=== PATIENT | male | born 1940 | race Caucasian/White ===

== ENCOUNTER 2016-12-07 19:28 | Observation (INO) | payer OTHER ==
[~2016-12-07] VITALS: Ht 172.7 cm; Wt 89.0 kg
[2016-12-07 19:32] VITALS: BP 183/88; PULSE 71; RESP 16; TEMP 98.1; O2SAT 98
[2016-12-07 19:41] VITALS: BP 157/87; PULSE 70; RESP 17; TEMP 98.6; O2SAT 96
[2016-12-07 19:44] VITALS: BP 157/87; PULSE 70; RESP 17; O2SAT 96
[2016-12-07] MEDS ORDERED: SODIUM CHLORIDE 0.9% FLUSH 5 ML FLUSH IVF PRN (20:00)
[2016-12-07] MEDS ORDERED: ASPIRIN 81 MG CHEW TAB PO ONE (20:00)
--- NOTE | 2016-12-07 20:05 | PD ---
HPI Chief Complaint: Chest Pain Time Seen by Provider: 19:47 Travel History International Travel<30 days: No Contact w/Intl Traveler<30days: No History of Present Illness HPI Patient is a 76-year-old male with history of hypertension, hyperlipidemia and coronary artery disease who presents emergency room for evaluation of chest pain. Patient reports that he has been having chest pain which has been ongoing for the past 2 days. Patient reports that he had substernal chest pressure all day yesterday, reports that he had the pressure to his chest all day today and since he has hx of cad, reports that he figured he should have a cardiac evaluation. Patient reports that he has no chest pain at this time. Patient reports that nothing makes his chest pain better or worse. Patient reports that he has been very stressed at home lately, patient associates this with this chest pain. Patient reports that he has history of a quadruple bypass in 1995, does follow me office with Dr. Agustin. Patient at this time denies any chest pain or shortness of breath. Patient denies diaphoresis. Patient with no complaints. PFSH Past Medical History Blood Disorders: No Anxiety: Yes Depression: Yes Heart Rhythm Problems: No Cancer: No Cardiac Catheterization: Yes Cardiovascular Problems: Yes High Cholesterol: No Chemotherapy: No Chest Pain: Yes Congestive Heart Failure: No Cerebrovascular Accident: No Endocrine: No Genitourinary: No Headaches: No Hypertension: Yes Immune Disorder: No Musculoskeletal: No Neurologic: No Psychiatric: No Reproductive: No Respiratory: No Myocardial Infarction: Yes Radiation Therapy: No Seizures: No Past Surgical History Abdominal Surgery: No AICD: No Arteriovenous Shunt: No Cardiac Surgery: Yes Coronary Artery Bypass Graft: Yes (CABG QUAD) Ear Surgery: No Endocrine Surgery: No Eye Surgery: No Genitourinary Surgery: No Gynecologic Surgery: No Insulin Pump: No Joint Replacement: No Oral Surgery: No Pacemaker: No Thoracic Surgery: No Other Surgery: Yes Family History Family History: Negative Social History Alcohol Use: No Tobacco Use: No Substance Use: No Allergies-Medications (Allergen,Severity, Reaction): Coded Allergies: No Known Allergies (Verified , 12/07/16) Uncoded Allergies: NKA (Allergy, Unknown, 07/17/03) Reported Meds & Prescriptions Reported Meds & Active Scripts Active Review of Systems General / Constitutional: No: Fever Eyes: No: Visual changes HENT: No: Headaches Cardiovascular: Positive: Chest Pain or Discomfort, No: Palpitations, Irregular Rhythm, Tachycardia, Diaphoresis, Syncope Respiratory: No: Shortness of Breath Gastrointestinal: No: Abdominal Pain Genitourinary: No: Dysuria Musculoskeletal: No: Pain Skin: No Rash Neurologic: No: Weakness Psychiatric: No: Depression Endocrine: No: Polydipsia Hematologic/Lymphatic: No: Easy Bruising Physical Exam Narrative GENERAL: No acute distress, nontoxic SKIN: Warm and dry. HEAD: Atraumatic. Normocephalic. EYES: No injection or drainage. ENT: No nasal bleeding or discharge. Mucous membranes pink and moist. NECK: Trachea midline. No JVD. CARDIOVASCULAR: Regular rate and rhythm. No murmur appreciated. RESPIRATORY: No accessory muscle use. Clear to auscultation. Breath sounds equal bilaterally. GASTROINTESTINAL: Abdomen soft, non-tender, nondistended. Hepatic and splenic margins not palpable. MUSCULOSKELETAL: No obvious deformities. No clubbing. No cyanosis. No edema. NEUROLOGICAL: Awake and alert. No obvious cranial nerve deficits. Motor grossly within normal limits. Normal speech. PSYCHIATRIC: Appropriate mood and affect; insight and judgment normal. Data Data Last Documented VS Vital Signs Date Time Temp Pulse Resp B/P Pulse Ox O2 Delivery O2 Flow Rate FiO2 12/07/16 19:44 70 17 157/87 96 Room Air 12/07/16 19:32 98.1 Orders B-Type Natriuretic Peptide (12/07/16 19:53) Ckmb (Isoenzyme) Profile (12/07/16 19:53) Complete Blood Count With Diff (12/07/16 19:53) Comprehensive Metabolic Panel (12/07/16 19:53) Prothrombin Time / Inr (Pt) (12/07/16 19:53) Act Partial Throm Time (Ptt) (12/07/16 19:53) Troponin I (12/07/16 19:53) Chest, Single Ap (12/07/16 19:53) Ecg Monitoring (12/07/16 19:53) Iv Access Insert/Monitor (12/07/16 19:53) Oximetry (12/07/16 19:53) Aspirin Chew (Aspirin Chew) (12/07/16 20:00) Sodium Chloride 0.9% Flush (Ns Flush) (12/07/16 20:00) MDM Medical Decision Making Medical Screen Exam Complete: Yes Emergency Medical Condition: Yes Interpretation(s) EKG at 1941, NSR at 72bpm, qt/qtc: 406/431, st seg depression V2-V6 Vital Signs Date Time Temp Pulse Resp B/P Pulse Ox O2 Delivery O2 Flow Rate FiO2 12/07/16 19:44 70 17 157/87 96 Room Air 12/07/16 19:40 69 17 98 Room Air 12/07/16 19:32 98.1 71 16 183/88 98 Room Air Differential Diagnosis ACS, arrhythmia, electrolyte abnormality, PE Narrative Course Patient is a 76-year-old male who presents to emergency room with complaints of chest pain. Patient has been having chest pain/chest pressure since yesterday. Reports that nothing really makes his chest pain better or worse, patient with no chest pain at this time. Patient does have history of coronary disease does follow-up with Dr. Meme Agustin in the office. Patient was placed on detective precinct upon arrival to emergency room. EKG obtained, patient with ST segment depressions in anterior lateral leads. Patient currently chest pain-free. CBC, BMP, cardiac enzymes as well as x-ray of chest ordered. Will continue to monitor patient Radha Orta DO Dec 07, 2016 20:05
[2016-12-07 20:19] LABS: AUTOMATED NEUTROPHIL # 5.5 TH/MM3 (1.8-7.7); BASOPHIL % 0.5 % (0.0-2.0); EOSINOPHIL # 0.3 TH/MM3 (0-0.4); EOSINOPHIL % 3.4 % (0.0-4.0); HEMATOCRIT 44.2 % (39.0-51.0); HEMO FLAGS DIFF FINAL; LYMPH % 27.9 % (9.0-44.0); LYMPHOCYTE # 2.6 TH/MM3 (1.0-4.8); MEAN CELL VOLUME 87.8 FL (80.0-100.0); MEAN CORPUSCULAR HGB CONC 35.3 % (32.0-36.0); MONO % 10.1 % (0.0-8.0); NEUT % 58.1 % (16.0-70.0); PLATELET COUNT 195 TH/MM3 (150-450); RED BLOOD COUNT 5.03 MIL/MM3 (4.50-5.90); RED CELL DISTRIBUTION WIDTH 13.4 % (11.6-17.2); WHITE BLOOD COUNT 9.4 TH/MM3 (4.0-11.0)
[2016-12-07 20:32] LABS: APTT (PATIENT) 25.9 SEC (24.3-30.1); PROTHROMBIN TIME - PATIENT 11.2 SEC (9.8-11.6)
[2016-12-07 20:38] LABS: ANION GAP 9 MEQ/L (5-15); AST (GOT) 38 U/L (15-37); BICARBONATE 27.4 MEQ/L (21.0-32.0); BLOOD UREA NITROGEN 19 MG/DL (7-18); CHLORIDE 103 MEQ/L (98-107); GLOMERULAR FILTRATION RATE 53 ML/MIN (>89); POTASSIUM 4.2 MEQ/L (3.5-5.1); SODIUM (NA) 139 MEQ/L (136-145)
[2016-12-07 20:41] LABS: ALKALINE PHOSPHATASE 97 U/L (45-117); ALT (GPT) 62 U/L (12-78); CREATINE KINASE 197 U/L (39-308); TOTAL BILIRUBIN ADULT 0.7 MG/DL (0.2-1.0)
[2016-12-07 20:53] LABS: CKMB 1.4 NG/ML (0.5-3.6)
--- NOTE | 2016-12-07 20:56 | RADRPT ---
EXAM DATE/TIME: 12/07/2016 20:04 [facility] COMPARISON: No previous studies available for comparison. INDICATIONS : Chest pain MEDICAL HISTORY : Cardiovascular disease. SURGICAL HISTORY : None. ENCOUNTER: Initial ACUITY: 1 day PAIN SCORE: 2/10 LOCATION: Bilateral chest FINDINGS: A single view of the chest demonstrates the lungs to be symmetrically aerated without evidence of mas s, infiltrate or effusion. Linear atelectasis or scarring at the bases. Previous median sternotomy. T he cardiomediastinal contours are unremarkable. Osseous structures are intact. CONCLUSION: Minimal atelectasis or scarring at the bases. Previous median sternotomy. Terry Mcleod MD on December 07, 2016 at 20:53 Board Certified Radiologist. This report was verified electronically.
[2016-12-07] MEDS ORDERED: SODIUM CHLORIDE 0.9% FLUSH 5 ML FLUSH FLUSH PRN (22:00)
[2016-12-07] MEDS ORDERED: NALOXONE HCL 0.4 MG/ML AMP IV PRN (22:00)
[2016-12-07] MEDS ORDERED: AMLO10TA2 PO (23:30)
[2016-12-07] MEDS ORDERED: LISI2.5T3 PO (23:30)
[2016-12-07] MEDS ORDERED: BENZ1CAP8 PO (23:30)
[2016-12-07] MEDS ORDERED: ATOR20TA15 PO (23:30)
[2016-12-07] MEDS ORDERED: METO25TA3 PO (23:30)
[2016-12-07] MEDS ORDERED: ALPR0.5T3 PO (23:31)
[2016-12-07 23:39] VITALS: BP 158/74; PULSE 70; RESP 17; O2SAT 96
[2016-12-08] VITALS (7 sets, daily range): BP systolic 109–156; BP diastolic 66–95; PULSE 62–86; RESP 16–20; TEMP 97.8–98.4; O2SAT 95–98
[2016-12-08 05:24] LABS: AUTOMATED NEUTROPHIL # 5.7 TH/MM3 (1.8-7.7); BASOPHIL # 0.1 TH/MM3 (0-0.2); BASOPHIL % 0.6 % (0.0-2.0); EOSINOPHIL # 0.3 TH/MM3 (0-0.4); EOSINOPHIL % 2.8 % (0.0-4.0); HEMATOCRIT 43.7 % (39.0-51.0); HEMO FLAGS DIFF FINAL; LYMPH % 25.3 % (9.0-44.0); LYMPHOCYTE # 2.3 TH/MM3 (1.0-4.8); MEAN CELL VOLUME 87.1 FL (80.0-100.0); MEAN CORPUSCULAR HEMOGLOBIN 30.8 PG (27.0-34.0); MEAN CORPUSCULAR HGB CONC 35.3 % (32.0-36.0); MONO % 10.4 % (0.0-8.0); NEUT % 60.9 % (16.0-70.0); PLATELET COUNT 203 TH/MM3 (150-450); RED BLOOD COUNT 5.02 MIL/MM3 (4.50-5.90); RED CELL DISTRIBUTION WIDTH 13.5 % (11.6-17.2); WHITE BLOOD COUNT 9.3 TH/MM3 (4.0-11.0)
[2016-12-08 05:57] LABS: BICARBONATE 29.6 MEQ/L (21.0-32.0); POTASSIUM 4.1 MEQ/L (3.5-5.1)
[2016-12-08] MEDS: SODIUM CHLORIDE 0.9% FLUSH 5 ML FLUSH FLUSH SCH ×2 (08:52→22:08)
[2016-12-08] MEDS ORDERED: SODIUM CHLOR 0.9% 1000 ML INJ 1,000 ML IV SCH ×2 (09:30→11:05)
[2016-12-08] MEDS ORDERED: ASPIRIN 325 MG TAB PO SCH (09:30)
[2016-12-08] MEDS ORDERED: diphenhydrAMINE HCL 50 MG/ML VIAL IV SCH (09:30)
[2016-12-08] MEDS ORDERED: HEPARIN-NS/PF INJ 500 ML ONE (10:07)
[2016-12-08] MEDS ORDERED: diphenhydrAMINE HCL 50 MG/ML VIAL ONE (10:09)
[2016-12-08] MEDS ORDERED: ASPIRIN 81 MG CHEW TAB ONE (10:09)
[2016-12-08] MEDS ORDERED: IOHEXOL 350 MG/ML 100 ML BTL (for Cath Lab) OTHER ONE (11:00)
[2016-12-08] MEDS: METOPROLOL TARTRATE 25 MG TAB PO SCH ×2 (11:15→22:07)
[2016-12-08] MEDS ORDERED: ALPRAZolam 0.5 MG TAB PO SCH (11:15)
[2016-12-08] MEDS ORDERED: METOCLOPRAMIDE HCL 10 MG/2 ML VIAL IV PRN (11:15)
[2016-12-08] MEDS ORDERED: LIDOCAINE HCL 1% 50 ML VIAL INFIL PRN (11:15)
[2016-12-08] MEDS ORDERED: ONDANSETRON HCL 4 MG/2 ML VIAL IV PRN (11:15)
[2016-12-08] MEDS: ISOSORBIDE MONONITRATE 30 MG TAB PO SCH (11:15)
[2016-12-08] MEDS ORDERED: SODIUM CHLOR 0.9% 250 ML INJ 250 ML IV PRN (11:15)
[2016-12-08] MEDS ORDERED: CLOPIDOGREL 300 MG TAB PO ONE (11:15)
[2016-12-08] MEDS ORDERED: ATROPINE SULFATE 1 MG/ML VIAL IV PRN (11:15)
[2016-12-08] MEDS ORDERED: MISC INFORMATION XX ONE (11:15)
[2016-12-08] MEDS ORDERED: LORazepam 2 MG/ML VIAL IV PRN (11:15)
[2016-12-08] MEDS ORDERED: SODIUM CHLORIDE 0.9% FLUSH 5 ML FLUSH IVF PRN (11:15)
[2016-12-08] MEDS ORDERED: BACITRACIN OINT 0.9 GM PKT TOP ONE (11:15)
[2016-12-08] MEDS ORDERED: ASPI81CH CHEW (11:25)
[2016-12-08] MEDS ORDERED: LIPI80TA PO (11:25)
[2016-12-08] MEDS ORDERED: ISOS30TA3 PO (11:25)
[2016-12-08] MEDS ORDERED: PLAV75TA29 PO (11:25)
--- NOTE | 2016-12-08 11:26 | HHI.DCPOC ---
Discharge Care Plan Goals to Promote Your Health * To prevent worsening of your condition and complications * To maintain your health at the optimal level Directions to Meet Your Goals Take your medications as prescribed Follow your dietary instruction Follow activity as directed Keep your appointments as scheduled Take your immunizations and boosters as scheduled If your symptoms worsen call your PCP, if no PCP go to Urgent Care Center or Emergency Room Smoking is Dangerous to Your Health. Avoid second hand smoke Call the 24-hour hour crisis hotline for domestic abuse at Zoila Merino MD Dec 08, 2016 11:26
--- NOTE | 2016-12-08 11:26 | MB ---
cc: SHARAN LEON MD DATE OF CONSULTATION: 12/08/2016 REASON FOR CONSULTATION: Angina with history of coronary artery disease. HISTORY OF PRESENT ILLNESS Mr. Angeles is a 76-year-old man who does have a remote history of coronary artery bypass graft times four, hypertension, and hyperlipidemia. He underwent catheterization in 2005 and was sent have severe three-vessel comanche disease. He had 2/4 patent bypass grafts being the WIGGINS to LAD and SVG to OM. At that time he underwent stenting of the obtuse marginal. Since that time he has done well with medical management. The patient reports that last week he had an episode of chest [place] the airport. Over the last couple days she has had several episodes lasted up to 30 minutes. He is currently pain free. PAST MEDICAL HISTORY: 1. Past medical history significant for anxiety 2. myocardial infarction 3. Coronary artery bypass graft x4 with subsequent stenting as described above. 4. Hypertension 5. Hyperlipidemia 6. obesity 7. depression. FAMILY HISTORY Negative for coronary artery disease. SOCIAL HISTORY The patient is and does not drink or smoke. REVIEW OF SYSTEMS Except as well as mentioned in history of present illness all 12 systems are negative. FAMILY HISTORY Noncontributory. OUTPATIENT MEDICATIONS Included an 1. Aspirin. 2. Amlodipine. 3. Metoprolol. 4. Xanax 5. Lisinopril. 6. Atorvastatin. PHYSICAL EXAMINATION: VITAL SIGNS: On physical examination vital signs in 97.8, 73, 18, 118/76. IN GENERAL: He is an obese man who is in no apparent distress. NECK: Neck is free from JVD. LUNGS: The lungs are bilaterally clear auscultation. CARDIOVASCULAR SYSTEM: Cardiovascular examination he has a normal S1 and S2. I did not appreciate any murmurs, rubs or gallops. ABDOMEN: The abdomen is soft. EXTREMITIES: Extremities are free from edema. LABORATORY FINDINGS Significant for an initial creatinine of 1.32, subsequent creatinine of 0.97. His troponin 0.06 / 0.06. EKG shows normal sinus rhythm with anterolateral inverted T-waves. IMPRESSION 1. Angina - the patient has a history of CAD and is now having some progressive episodes of chest pain despite good medical management with the amlodipine and metoprolol. Given his complex history, optimal medication and progressive angina, we discussed further evaluation with nuclear stress testing versus catheterization. The patient, and I both agree that catheterization would be optimal despite the known risks of a couple percent for , OR, CVA and other. Despite these risks. The patient is willing to proceed. 2. Hypertension - the patient appears reasonably controlled at this point. 3. Lipids - testing lipids will be obtained. Yobany Ferrell /9:36 AM /11:04 AM
[2016-12-08] MEDS ORDERED: PILL SPLITTER OTHER PRN (11:30)
[2016-12-08 11:31] LABS: HDL CHOLESTEROL 40.7 MG/DL (40.0-60.0)
--- NOTE | 2016-12-08 11:53 | MA ---
cc: SHARAN LEON MD DATE: 12/08/2016 INDICATION Atr-OL-pjyrlwiap SC. PROCEDURES Left eye catheterization, selective coronary angiography, left ventriculography, saphenous vein graft angiography and LETICIA angiography. DETAILS OF PROCEDURE The patient gave informed consent. He was prepped in the usual sterile fashion. A subcutaneous injection of lidocaine was made in the right inguinal area. Access was achieved into the right femoral artery and a 6-Lithuanian sheath was inserted. A JR4 was utilized to engage the RCA, SVG and the left subclavian. I was unable to engage the LETICIA despite the use of a Glidewire. I exchanged out for an LETICIA catheter and subsequently engaged the LETICIA. Angiograms were obtained. A JL4 was utilized to engage the left main. Ultimately we used an angled 6-Lithuanian pigtail catheter to obtain the left ventriculogram and hemodynamics. The patient tolerated the procedure well and was pain free throughout. FINDINGS Left main: This vessel has mild luminal irregularities and gives rise to LAD and circumflex. LAD: This vessel is proximally occluded. Circumflex: This is a large codominant vessel. The circumflex proper has mild luminal irregularities of 10-20%. The first OM has a proximal 30% stenosis. RCA: This vessel has ostial and mid 50% stenosis that is mildly calcific. It is a codominant vessel. GRAFT ANATOMY WIGGINS to LAD: The WIGGINS is widely patent. After the anastomosis there is a 50-60% mid LAD lesion. SVG to OM: This is widely patent. Two other bypass grafts are known to be occluded from his 2006 cath. IMPRESSIONS 1. Occluded proximal LAD and moderate disease of the RCA. 2. Moderate disease of the WIGGINS to LAD. 3. Patent SVG to OM. PLAN 1. Medical management and consideration for stress testing should he have ongoing symptoms to evaluate the intermediate lesions of the LAD and RCA. 2. The patient will be discharged home today. 3. We will and Plavix and Imdur. Sharan Leon M.D. LORAINE/KATYA /11:03 AM /11:40 AM
--- NOTE | 2016-12-08 13:18 | HHI.HP ---
[facility] Edna Cheng Do, MD Admission Diagnosis chest pain Diagnoses: Chief Complaint: Chest pain Travel History International Travel<30 Days: No Contact w/Intl Traveler <30 Da: No Traveled to Known Affected Are: No History of Present Illness 76-year-old male with a past history of CAD, anxiety, HTN, HLD who presented for chest pain. The patient denies any specific pain in his chest. He describes it as a discomfort and a pressure located in the center of his chest. He states that the first episode was about a week ago. He took a Xanax at that time, his symptoms improved. He states that the chest pressure occurred again yesterday, and persisted for several hours. He tried to take a Xanax again yesterday and the chest discomfort did not go away. He states that back in 1995 for his previous bypass, the chest pain was related to exertion. The chest pain was not examined related to exertion this time. He denies any fevers , chills, cough, palpitations, nausea. He underwent cardiac catheterization with his photocopier technician Dr. Agustin today, who recommended medical management. Last night, the patient states that the mattress he was on fell off the stretcher and he landed on his right shoulder. He isn't having difficulty moving his right shoulder since that time. He has no problems moving his right hand. No decreased sensation in the right upper extremity. He is having right shoulder pain that he rates 5/10 in severity. Review of Systems Other 10 point review of systems performed and was negative except as stated in the history of present illness Past Family Social History Past Medical History Coronary artery disease Anxiety Hypertension Hyperlipidemia Past Surgical History CABG Reported Medications Alprazolam 0.5 Mg Tab 0.5 Mg PO DAILY Atorvastatin (Atorvastatin Calcium) 20 Mg Tab 20 Mg PO HS Amlodipine (Amlodipine Besylate) 10 Mg Tab 10 Mg PO DAILY Benzonatate 100 Mg Cap 100 Mg PO TID PRN Metoprolol Tartrate 25 Mg Tab 12.5 Mg PO BID Lisinopril 2.5 Mg Tab 2.5 Mg PO DAILY Allergies: Coded Allergies: No Known Allergies (Verified , 12/07/16) Uncoded Allergies: NKA (Allergy, Unknown, 07/17/03) Active Ordered Medications Current Medications Medications (Trade) Dose Ordered Sig/Say Route Start Time Stop Time Status Last Admin (NS Flush) 2 ml UNSCH PRN IVF 12/07/16 20:00 (NS Flush) 2 ml UNSCH PRN FLUSH 12/07/16 22:00 (NS Flush) 2 ml BID FLUSH 12/08/16 09:00 12/08/16 08:52 Naloxone HCl 0.4 mg 0.4 mg UNSCH PRN IV 12/07/16 22:00 (NS 1000 ml Inj) 1,000 ml @ 100 mls/hr Q10H IV 12/08/16 11:05 12/08/16 15:04 (Ativan Inj) 0.5 mg UNSCH PRN IV 12/08/16 11:15 12/09/16 11:14 Atropine Sulfate 0.5 mg 0.5 mg UNSCH PRN IV 12/08/16 11:15 (NS 250 ml Inj) 250 ml @ 500 mls/hr ONCE PRN IV 12/08/16 11:15 12/09/16 11:14 (Reglan Inj) 10 mg Q4H PRN IV 12/08/16 11:15 (Zofran Inj) 4 mg Q4H PRN IV 12/08/16 11:15 (Xylocaine 1% Inj (50 ml)) 10 ml UNSCH PRN INFIL 12/08/16 11:15 12/09/16 11:14 (Xanax) 0.5 mg DAILY PO 12/08/16 11:15 (Norvasc) 10 mg DAILY PO 12/08/16 11:15 (Lipitor) 80 mg HS PO 12/08/16 21:00 (Prinivil) 2.5 mg DAILY PO 12/09/16 09:00 (Lopressor) 12.5 mg BID PO 12/08/16 11:15 (Aspirin) 325 mg DAILY PO 12/09/16 09:00 (Plavix) 75 mg DAILY PO 12/09/16 09:00 (Imdur) 30 mg DAILY@07 PO 12/08/16 11:15 (Pill Splitter) 1 ea UNSCH PRN OTHER 12/08/16 11:30 ([place] 5-325 Mg) 1 tab Q4H PRN PO 12/08/16 12:00 Family History No family history of coronary artery disease Social History No alcohol or tobacco use Physical Exam Vital Signs Vital Signs Date Time Temp Pulse Resp B/P Pulse Ox O2 Delivery O2 Flow Rate FiO2 12/08/16 11:22 97 Room Air 12/08/16 07:54 97.8 73 18 118/76 95 12/08/16 06:07 98.2 68 16 110/66 95 12/08/16 03:40 68 12/08/16 02:10 97.9 62 18 109/68 96 12/07/16 23:39 70 17 158/74 96 Room Air 12/07/16 19:44 70 17 157/87 96 Room Air 12/07/16 19:41 98.6 70 17 157/87 96 12/07/16 19:40 69 17 98 Room Air 12/07/16 19:32 98.1 71 16 183/88 98 Room Air Physical Exam GENERAL: Well-developed well-nourished. In no acute distress. SKIN: Warm and dry. No lesions noted. HEENT: Normocephalic. Pupils equal and round. Mucous membranes pink and moist. CARDIOVASCULAR: Regular rate and rhythm. No murmur appreciated. RESPIRATORY: No accessory muscle use. Clear to auscultation. Breath sounds equal bilaterally. GASTROINTESTINAL: Abdomen soft, non-tender, nondistended. Bowel sounds x4. MUSCULOSKELETAL: Pain with palpation and ROM of the right shoulder. Unable to actively lift the right arm secondary to pain. No clubbing or cyanosis. No edema. NEUROLOGICAL: Awake and alert. No focal neurological deficits. Moves upper and lower extremities spontaneously. Normal speech. PSYCHIATRIC: Appropriate mood and affect; insight and judgment normal. Laboratory Laboratory Tests Test 12/07/16 12/08/16 12/08/16 20:05 02:40 04:40 White Blood Count 9.4 9.3 Red Blood Count 5.03 5.02 Hemoglobin 15.6 15.5 Hematocrit 44.2 43.7 Mean Corpuscular Volume 87.8 87.1 Mean Corpuscular Hemoglobin 31.0 30.8 Mean Corpuscular Hemoglobin 35.3 35.3 Concent Red Cell Distribution Width 13.4 13.5 Platelet Count 195 203 Mean Platelet Volume 7.9 7.8 Neutrophils (%) (Auto) 58.1 60.9 Lymphocytes (%) (Auto) 27.9 25.3 Monocytes (%) (Auto) 10.1 10.4 Eosinophils (%) (Auto) 3.4 2.8 Basophils (%) (Auto) 0.5 0.6 Neutrophils # (Auto) 5.5 5.7 Lymphocytes # (Auto) 2.6 2.3 Monocytes # (Auto) 0.9 1.0 Eosinophils # (Auto) 0.3 0.3 Basophils # (Auto) 0.0 0.1 CBC Comment DIFF FINAL DIFF FINAL Differential Comment Prothrombin Time 11.2 Prothromb Time International 1.0 Ratio Activated Partial 25.9 Thromboplast Time Sodium Level 139 139 Potassium Level 4.2 4.1 Chloride Level 103 104 Carbon Dioxide Level 27.4 29.6 Anion Gap 9 5 Blood Urea Nitrogen 19 15 Creatinine 1.32 0.97 Estimat Glomerular Filtration 53 76 Rate Random Glucose 104 116 Calcium Level 8.9 8.6 Total Bilirubin 0.7 Aspartate Amino Transf 38 (AST/SGOT) Alanine Aminotransferase 62 (ALT/SGPT) Alkaline Phosphatase 97 Total Creatine Kinase 197 166 Creatine Kinase MB 1.4 Troponin I 0.06 0.06 B-Type Natriuretic Peptide 55 Total Protein 8.0 Albumin 4.1 Triglycerides Level 89 Cholesterol Level 136 LDL Cholesterol 78 HDL Cholesterol 40.7 Cholesterol/HDL Ratio 3.34 Result Diagram: 12/08/1643912/08/16439 Imaging Last Impressions Chest X-Ray 12/07/161952 Signed Impressions: Service Date/Time: Wednesday, December 07, 2016 20:04 - CONCLUSION: Minimal atelectasis or scarring at the bases. Previous median sternotomy. Terry Mcleod MD Assessment and Plan Problem List: (1) Chest pain ICD Code: R07.9 Status: Acute (2) Hyperlipidemia ICD Code: E78.5 Status: Chronic (3) Hypertension ICD Code: I10 Status: Chronic Assessment and Plan 76-year-old male with a past history of CAD, anxiety, HTN, HLD who presented for chest pain Chest pain with history of CAD: Symptoms concerning for unstable angina. Troponin mildly elevated but flat 2 at 0.06. EKG reviewed with nonspecific ST changes. Cardiology consulted, perform catheterization which showed intermediate lesions of the LAD and RCA, medical management recommended. Plavix and Imdur added. Continue metoprolol, aspirin, and atorvastatin. Right shoulder pain: Status post fall out of the stretcher. Check x-ray. Consider MRI vs orthopedic consult pending findings. OT consult. Pain control with [place] as needed. Other chronic medical conditions are stable at this time and will continue home medications as indicated DVT prophylaxis: SCDs Disposition: Clear by cardiology for discharge. Follow-up workup of right shoulder. Written by Fuad Delgado, acting as scribe for Dr. Merino on 12/08/16 at 13:18. The documentation accurately reflects the work performed [id number] by me Dr. Merino on 12/08/16 at 13:18. Discussed Condition With Patient, Dr. Agustin, DOCU RN Problem Qualifiers (1) Chest pain: (2) Hyperlipidemia: Qualified Code: E78.5 - Hyperlipidemia, unspecified hyperlipidemia type (3) Hypertension: Qualified Code: I10 - Essential hypertension Fuad Delgado Dec 08, 2016 13:18 Zoila Merino MD Dec 08, 2016 14:13
--- NOTE | 2016-12-08 13:43 | EKG ---
Date Performed: 12/08/2016 Time Performed: 02:06:39 PTAGE: 76 years EKG: Sinus rhythm LEFT VENTRICULAR HYPERTROPHY AND ST-T CHANGE ABNORMAL ECG Compared to prior tracing no significant c leesa PREVIOUS TRACING : 12/07/2016 19.41 DOCTOR: Maria Elena Hernandez Interpretating Date/Time 12/08/2016 13:41:48
--- NOTE | 2016-12-08 13:43 | EKG ---
Date Performed: 12/07/2016 Time Performed: 19:41:47 PTAGE: 76 years EKG: Sinus rhythm ST DEVIATION AND MODERATE T-WAVE ABNORMALITY, CONSIDER ANTEROLATERAL ISCHEMIA ABNORMAL ECG Compared to prior tracing no significant change PREVIOUS TRACING : 12/25/2005 04.51 DOCTOR: Maria Elena Hernandez Interpretating Date/Time 12/08/2016 13:41:37
--- NOTE | 2016-12-08 14:35 | EKG ---
Date Performed: 12/08/2016 Time Performed: 08:02:20 PTAGE: 76 years EKG: Sinus rhythm LEFT VENTRICULAR HYPERTROPHY AND ST-T CHANGE Consider and exclude anterolateral ischemia in the sett ing of the prominent T wave changes Clinical correlation is advised ABNORMAL ECG PREVIOUS TRACING : 12/08/2016 02.06 DOCTOR: Maria Elena Hernandez Interpretating Date/Time 12/08/2016 14:35:18
--- NOTE | 2016-12-08 19:15 | RADRPT ---
EXAM DATE/TIME: 12/08/2016 17:55 [facility] COMPARISON: No previous studies available for comparison. INDICATIONS: Right shoulder pain after fall. MEDICAL HISTORY: None. SURGICAL HISTORY: None. ENCOUNTER: Initial ACUITY: 2 days PAIN SCORE: 8/10 LOCATION: Right shoulder. FINDINGS: No fracture is seen. The glenohumeral joint and acromioclavicular joints are normally aligned. Ther e is some hypertrophic change at the superior aspect of the acromioclavicular joint off the medial as pect of the acromion. CONCLUSION: No acute abnormality is seen. Giorgio Quintanilla MD on December 08, 2016 at 18:47 Board Certified Radiologist. This report was verified electronically.
[2016-12-08] MEDS ORDERED: SODIUM CHLORIDE 0.9% FLUSH 5 ML FLUSH IVF SCH (21:00)
[2016-12-08] MEDS ORDERED: ATORVASTATIN 80 MG TAB PO SCH (21:00)
[2016-12-08] MEDS: ACETAMINOPHEN/HYDROcodone 325 MG/5 MG TAB PO PRN (22:16)
[2016-12-09] VITALS: BP 130/77; PULSE 70; RESP 20; TEMP 98.4; O2SAT 94
[2016-12-09 04:00] VITALS: BP 142/80; PULSE 70; RESP 20; TEMP 98.2; O2SAT 94
[2016-12-09] MEDS: ISOSORBIDE MONONITRATE 30 MG TAB PO SCH (06:32)
[2016-12-09] MEDS: ACETAMINOPHEN/HYDROcodone 325 MG/5 MG TAB PO PRN (06:32)
[2016-12-09 08:00] VITALS: PULSE 68
[2016-12-09 08:04] VITALS: BP 122/72; PULSE 77; RESP 20; TEMP 98.1; O2SAT 91
[2016-12-09] MEDS ORDERED: LISINOPRIL 5 MG TAB PO SCH (09:00)
[2016-12-09] MEDS ORDERED: ASPIRIN 325 MG TAB PO SCH (09:00)
[2016-12-09] MEDS ORDERED: CLOPIDOGREL 75 MG TAB PO SCH (09:00)
[2016-12-09] MEDS: METOPROLOL TARTRATE 25 MG TAB PO SCH (09:10)
[2016-12-09] MEDS: SODIUM CHLORIDE 0.9% FLUSH 5 ML FLUSH FLUSH SCH (09:14)
--- NOTE | 2016-12-09 09:34 | HHI.PR ---
Subjective Remarks patient says he feels much better. No chest pain or sob. Says right shoulder pain has improved and he can move better his shoulder. Would like to go home. Will have PT/OT at home. Objective Vitals Vital Signs Date Time Temp Pulse Resp B/P Pulse Ox O2 Delivery O2 Flow Rate FiO2 12/09/16 08:04 98.1 77 20 122/72 91 12/09/16 04:00 98.2 70 20 142/80 94 12/09/16 00:00 98.4 70 20 130/77 94 12/08/16 20:51 76 12/08/16 20:00 98.4 86 20 142/81 98 12/08/16 18:50 98.4 85 18 156/95 95 12/08/16 11:22 97 Room Air I/O 12/08/16 12/08/16 12/08/16 12/09/16 12/09/16 12/09/16 07:00 15:00 23:00 07:00 15:00 23:00 Intake Total 220 ml 120 ml Balance 220 ml 120 ml Intake Oral 220 ml 120 ml # Voids 1 1 # Bowel Movements 0 0 Result Diagram: 12/08/16 0440 12/08/16 0440 Imaging Last Impressions Shoulder X-Ray 12/08/16 0000 Signed Impressions: Service Date/Time: Thursday, December 08, 2016 17:55 - CONCLUSION: No acute abnormality is seen. Giorgio Quintanilla MD Chest X-Ray 12/07/161952 Signed Impressions: Service Date/Time: Wednesday, December 07, 2016 20:04 - CONCLUSION: Minimal atelectasis or scarring at the bases. Previous median sternotomy. Terry Mcleod MD Objective Remarks GENERAL: Well-developed well-nourished. In no acute distress. SKIN: Warm and dry. No lesions noted. HEENT: Normocephalic. Pupils equal and round. Mucous membranes pink and moist. CARDIOVASCULAR: Regular rate and rhythm. No murmur appreciated. RESPIRATORY: No accessory muscle use. Clear to auscultation. Breath sounds equal bilaterally. GASTROINTESTINAL: Abdomen soft, non-tender, nondistended. Bowel sounds x4. MUSCULOSKELETAL: Pain with palpation and ROM of the right shoulder. Unable to actively lift the right arm secondary to pain. No clubbing or cyanosis. No edema. NEUROLOGICAL: Awake and alert. No focal neurological deficits. Moves upper and lower extremities spontaneously. Normal speech. PSYCHIATRIC: Appropriate mood and affect; insight and judgment normal. A/P Problem List: (1) Chest pain ICD Code: R07.9 Status: Acute (2) Hyperlipidemia ICD Code: E78.5 Status: Chronic (3) Hypertension ICD Code: I10 Status: Chronic Assessment and Plan 76-year-old male with a past history of CAD, anxiety, HTN, HLD who presented for chest pain Chest pain with history of CAD: Symptoms concerning for unstable angina. Troponin mildly elevated but flat 2 at 0.06. EKG reviewed with nonspecific ST changes. Cardiology consulted, Dr Agustin who perform catheterization 12/08 which showed intermediate lesions of the LAD and RCA, medical management recommended. Plavix and Imdur added. Continue metoprolol, aspirin, and atorvastatin. Right shoulder pain: Status post fall out of the stretcher. Check x-ray. Consider MRI vs orthopedic consult pending findings. OT consult. Pain control with [place] as needed. Other chronic medical conditions are stable at this time and will continue home medications as indicated DVT prophylaxis: SCDs Disposition: Clear by cardiology for discharge. Follow-up workup of right shoulder. Discussed Condition With Patient, nurse Discharge Planning DC home in fairly good condition To follow up as OP with PCP and consultants Meds per med reconciliations. Activity ad ingrid as tolerated Diet HHD Problem Qualifiers (1) Chest pain: (2) Hyperlipidemia: Qualified Code: E78.5 - Hyperlipidemia, unspecified hyperlipidemia type (3) Hypertension: Qualified Code: I10 - Essential hypertension Zoila Merino MD Dec 09, 2016 09:34
[2016-12-09] MEDS ORDERED: NORC5TAB PO (09:43)
--- NOTE | 2016-12-09 09:44 | HHI.FF ---
Face to Face Verification Diagnosis: (1) Chest pain (2) Hyperlipidemia (3) Hypertension (4) Shoulder pain, acute Physical Therapy Order: Evaluate and Treat Occupational Therapy Order: Evaluate and Treat I have seen patient Ted Angeles on 12/09/16. My clinical findings support the need for the requested home health care services because: Ltd mobility - disease progression I certify that my clinical findings support that this patient is homebound because: Post-op weakness Zoila Merino MD Dec 09, 2016 09:44
[2016-12-09 12:04] VITALS: BP 104/59; PULSE 60; RESP 20; TEMP 97.9; O2SAT 94
== END 2016-12-09 13:27 | disposition home or self-care (01) ==
LOC: NEPA 19:28 → NEDA 21:50 → NEPHCDU 12-08 00:28 → NEDA 12-08 03:39 → HCIS 12-08 10:19 → N04A 12-08 18:45
PROVIDERS: ADMIT Hospitalist; ATTEND Hospitalist
DX: R07.9 Chest pain, unspecified (principal); I25.119 Atherosclerotic heart disease of native coronary artery with unspecified angina pectoris; I10 Essential (primary) hypertension; E78.5 Hyperlipidemia, unspecified; F41.9 Anxiety disorder, unspecified; I25.2 Old myocardial infarction; Z95.1 Presence of aortocoronary bypass graft; E66.9 Obesity, unspecified; Z79.899 Other long term (current) drug therapy; M25.511 Pain in right shoulder; W08.XXXA Fall from other furniture, initial encounter; Y93.89 Activity, other specified; Y92.239 Unspecified place in hospital as the place of occurrence of the external cause; I51.7 Cardiomegaly; R94.31 Abnormal electrocardiogram [ECG] [EKG]
CPT/HCPCS: 71010; 73030; 80048; 80053; 80061; 82550; 82552; 83880; 84484; 85025; 85610; 85730; 93005; 93459; 97166; 99285; C1769; C1893; G0378; G8987; G8988; J1200; J1644; J3010; Q9967

== ENCOUNTER 2018-02-21 11:31 | Observation (INO) | payer OTHER ==
[2018-02-21] VITALS (7 sets, daily range): BP systolic 101–131; BP diastolic 66–79; PULSE 56–63; RESP 16–20; TEMP 96.1–97.8; O2SAT 94–97
[~2018-02-21] VITALS: Ht 162.6 cm; Wt 85.7 kg
[~2018-02-21 11:31] MED LIST: ALPR0.5T3 PO; AMLO10TA2 PO; ASPI-516 CHEW; BENZ1CAP54 PO; ISOS30TA3 PO; LIPI80TA PO; LISI2.5T3 PO; METO25TA3 PO; NORC5TAB PO; PLAV75TA29 PO
[2018-02-21] MEDS ORDERED: IBUPROFEN 600 MG TAB PO ONE (11:45)
--- NOTE | 2018-02-21 11:50 | PD ---
HPI Chief Complaint: Musculoskeletal Complaint Time Seen by Provider: 11:40 Travel History International Travel<30 days: No Contact w/Intl Traveler<30days: No Traveled to known affect area: No History of Present Illness HPI 77yo M with PMH of CAD s/p CABG here with c/o left shoulder pain for 3 days. Pt denies any trauma or fall. Said pain is worst with movement and worst at night. Denies any fever, chest pain, sob, n/v, abdominal pain, focal weakness or numbness. PFSH Past Medical History Asthma: No Blood Disorders: No Anxiety: Yes Depression: Yes Heart Rhythm Problems: No Cancer: No Cardiac Catheterization: Yes Cardiovascular Problems: Yes (HAD A CABG IN 1995) High Cholesterol: No Chemotherapy: No Chest Pain: Yes (REASON FOR VISIT) Congestive Heart Failure: No COPD: No Cerebrovascular Accident: No Diabetes: No Endocrine: No Genitourinary: No Headaches: No Hypertension: Yes Immune Disorder: No Musculoskeletal: No Neurologic: No Psychiatric: No Reproductive: No Respiratory: No Myocardial Infarction: Yes Radiation Therapy: No Seizures: No Sleep Apnea: No Thyroid Disease: No Past Surgical History Abdominal Surgery: No AICD: No Arteriovenous Shunt: No Body Medical Devices: STENT 1997 Cardiac Surgery: Yes Coronary Artery Bypass Graft: Yes (CABG QUAD) Ear Surgery: No Endocrine Surgery: No Eye Surgery: No Genitourinary Surgery: No Gynecologic Surgery: No Insulin Pump: No Joint Replacement: No Oral Surgery: No Pacemaker: No Thoracic Surgery: No Other Surgery: Yes Social History Alcohol Use: No Tobacco Use: No Substance Use: No Allergies-Medications (Allergen,Severity, Reaction): Coded Allergies: No Known Allergies (Verified Adverse Reaction, Unknown, 02/21/18) Uncoded Allergies: NKA (Allergy, Unknown, 07/17/03) Reported Meds & Prescriptions Reported Meds & Active Scripts Active [place] (Hydrocodone-Acetaminophen) 5-325 mg Tab 1 Tab PO Q4H PRN Aspirin 81 Mg Chew 162 Mg CHEW DAILY Isosorbide Mononitrate ER (Isosorbide Mononitrate) 30 Mg Arnoldo 30 Mg PO DAILY@07 Plavix (Clopidogrel Bisulfate) 75 Mg Tab 75 Mg PO DAILY Lipitor (Atorvastatin Calcium) 80 Mg Tab 80 Mg PO HS Reported Alprazolam 0.5 Mg Tab 0.5 Mg PO DAILY Amlodipine (Amlodipine Besylate) 10 Mg Tab 10 Mg PO DAILY Benzonatate 100 Mg Cap 100 Mg PO TID PRN Metoprolol Tartrate 25 Mg Tab 12.5 Mg PO BID Lisinopril 2.5 Mg Tab 2.5 Mg PO DAILY Review of Systems Except as stated in HPI: all other systems reviewed are Neg Physical Exam Narrative GENERAL: 77yo M not in distress. SKIN: Focused skin assessment warm/dry. HEAD: Atraumatic. Normocephalic. CARDIOVASCULAR: Regular rate and rhythm. No murmur appreciated. RESPIRATORY: No accessory muscle use. Clear to auscultation. Breath sounds equal bilaterally. CHEST WALL: +Midsternal scar. No ttp chest. GASTROINTESTINAL: Abdomen soft, non-tender, nondistended. No rebound tenderness or guarding. MUSCULOSKELETAL: Left shoulder: +TTP medial glenohumeral joint. No erythema or effusion. Good range of motion. Sensation intact. Distal pulses intact. NEUROLOGICAL: Awake and alert. No obvious cranial nerve deficits. Motor grossly within normal limits. Normal speech. PSYCHIATRIC: Appropriate mood and affect; insight and judgment normal. Data Data Last Documented VS Vital Signs Date Time Temp Pulse Resp B/P (MAP) Pulse Ox O2 Delivery O2 Flow Rate FiO2 02/21/18 13:32 56 16 101/67 (78) 95 Room Air 02/21/18 11:36 97.5 Orders Orders Electrocardiogram (02/21/18 ) Shoulder, Limited(2vws) (02/21/18 ) Ibuprofen (Motrin) (02/21/18 11:45) Complete Blood Count With Diff (02/21/18 12:00) Basic Metabolic Panel (Bmp) (02/21/18 12:00) Troponin I (02/21/18 12:00) Prothrombin Time / Inr (Pt) (02/21/18 12:00) Act Partial Throm Time (Ptt) (02/21/18 12:00) Chest, Single Ap (02/21/18 ) Admit Order (Ed Use Only) (02/21/18 14:25) Consult Cardiology (02/21/18 ) Labs Laboratory Tests Test 02/21/18 12:20 White Blood Count 7.1 TH/MM3 Red Blood Count 5.12 MIL/MM3 Hemoglobin 15.1 GM/DL Hematocrit 45.7 % Mean Corpuscular Volume 89.3 FL Mean Corpuscular Hemoglobin 29.6 PG Mean Corpuscular Hemoglobin Concent 33.2 % Red Cell Distribution Width 12.8 % Platelet Count 216 TH/MM3 Mean Platelet Volume 7.8 FL Neutrophils (%) (Auto) 66.8 % Lymphocytes (%) (Auto) 23.3 % Monocytes (%) (Auto) 6.6 % Eosinophils (%) (Auto) 2.3 % Basophils (%) (Auto) 1.0 % Neutrophils # (Auto) 4.7 TH/MM3 Lymphocytes # (Auto) 1.6 TH/MM3 Monocytes # (Auto) 0.5 TH/MM3 Eosinophils # (Auto) 0.2 TH/MM3 Basophils # (Auto) 0.1 TH/MM3 CBC Comment DIFF FINAL Differential Comment Prothrombin Time 11.5 SEC Prothromb Time International Ratio 1.1 RATIO Activated Partial Thromboplast Time 25.2 SEC Blood Urea Nitrogen 12 MG/DL Creatinine 0.96 MG/DL Random Glucose 141 MG/DL Calcium Level 8.8 MG/DL Sodium Level 137 MEQ/L Potassium Level 4.3 MEQ/L Chloride Level 106 MEQ/L Carbon Dioxide Level 22.5 MEQ/L Anion Gap 9 MEQ/L Estimat Glomerular Filtration Rate 76 ML/MIN Troponin I 0.07 NG/ML MDM Medical Decision Making Medical Screen Exam Complete: Yes Emergency Medical Condition: Yes Interpretation(s) EKG: Sinus bradycardia at 58bpm. Symmetry T wave inversions V2-V6, I, II, aVL. This is unchanged from 11/2016. Differential Diagnosis Osteoarthritis vs. musculoskeletal pain vs. atypical ACS Narrative Course 77yo M with left shoulder pain that is worst with movement and seems musculoskeletal. Pain is also medial shoulder/left upper chest area. However, since pt has CAD, will do EKG. Will give ibuprofen and obtain xray left shoulder. EKG reviewed and is not significantly change from prior to has deeper T waves. However, it does have symmetry T wave inversions so will obtain labs including cardiac enzyme to make sure. Xray left shoulder showed no acute process. Degenerative changes AC joint. Pt reevaluated after ibuprofen and said he feels much better. Labs reviewed, no leukocytosis. Troponin mildly elevated at 0.07. Last time pt had troponin of 0.06 on 12/08/16 , he was admitted and had cardiac cath that showed occluded proximal LAD and moderate RCA disease. Also had repeat troponin that was elevated at 0.33. Will add CXR and admit pt for observation to trend troponin and EKG. Pt's diamond setter is Dr. Dey. Discussed with hospitalist Dr. Mcnally who accepted the patient and ask that I call cardiology. I discussed case with Dr. Peña who is covering Dr. Dey and he agrees with trending the troponin and if it increases, then pt would need to be transfer to [facility] for cardiac cath. Pt can stay in [place] at this time. He agrees to see him. Cardiology consult placed. Diagnosis Primary Impression: Elevated troponin Additional Impression: Left shoulder pain Qualified Codes: M25.512 - Pain in left shoulder Admitting Information Admitting Physician Requests: Observation Additional Instructions: Please follow up with your primary care physician in 3-7 days. Return to the ED if symptoms worsen. Tiffany Luna DO Feb 21, 2018 11:50
--- NOTE | 2018-02-21 12:27 | RADRPT ---
EXAM DATE/TIME: 02/21/2018 11:55 [facility] COMPARISON: No previous studies available for comparison. INDICATIONS : Left shoulder pain with no known injury MEDICAL HISTORY : None. SURGICAL HISTORY : None. ENCOUNTER: Initial ACUITY: 3 days PAIN SCORE: 2/10 LOCATION: Left entire shoulder FINDINGS: Two view examination of the left shoulder demonstrates no evidence of fracture or dislocation. The g lenohumeral and acromioclavicular joints are maintained. Degenerative changes AC joint. Bony minera lization is normal. CONCLUSION: Negative for acute process. George Kaur MD FACR on February 21, 2018 at 12:24 Board Certified Radiologist. This report was verified electronically.
[2018-02-21 12:30] LABS: AUTOMATED NEUTROPHIL # 4.7 TH/MM3 (1.8-7.7); BASOPHIL # 0.1 TH/MM3 (0-0.2); EOSINOPHIL # 0.2 TH/MM3 (0-0.4); EOSINOPHIL % 2.3 % (0.0-4.0); HEMATOCRIT 45.7 % (39.0-51.0); HEMOGLOBIN 15.1 GM/DL (13.0-17.0); LYMPH % 23.3 % (9.0-44.0); LYMPHOCYTE # 1.6 TH/MM3 (1.0-4.8); MEAN CELL VOLUME 89.3 FL (80.0-100.0); MEAN CORPUSCULAR HEMOGLOBIN 29.6 PG (27.0-34.0); MEAN CORPUSCULAR HGB CONC 33.2 % (32.0-36.0); MEAN PLATELET VOLUME 7.8 FL (7.0-11.0); MONO % 6.6 % (0.0-8.0); MONOCYTE # 0.5 TH/MM3 (0-0.9); NEUT % 66.8 % (16.0-70.0); PLATELET COUNT 216 TH/MM3 (150-450); RED BLOOD COUNT 5.12 MIL/MM3 (4.50-5.90); RED CELL DISTRIBUTION WIDTH 12.8 % (11.6-17.2); WHITE BLOOD COUNT 7.1 TH/MM3 (4.0-11.0)
[2018-02-21 12:44] LABS: INTERNATIONAL NORMALIZED RATIO 1.1 RATIO; PROTHROMBIN TIME - PATIENT 11.5 SEC (9.8-11.6)
[2018-02-21 13:15] LABS: CALCIUM 8.8 MG/DL (8.5-10.1)
[2018-02-21 13:16] LABS: BICARBONATE 22.5 MEQ/L (21.0-32.0)
[2018-02-21] MEDS ORDERED: TYLE325T PO (13:17)
[2018-02-21 13:19] LABS: CREATININE 0.96 MG/DL (0.60-1.30)
[2018-02-21 13:24] LABS: TROPONIN I 0.07 NG/ML (0.02-0.05)
--- NOTE | 2018-02-21 14:23 | RADRPT ---
EXAM DATE/TIME: 02/21/2018 14:12 [facility] COMPARISON: CHEST SINGLE AP, December 07, 2016, 20:04. INDICATIONS : Chest and left shoulder pain MEDICAL HISTORY : Myocardial infarction. Hypertension SURGICAL HISTORY : CABG. ENCOUNTER: Initial ACUITY: 1 day PAIN SCORE: 3/10 LOCATION: Bilateral chest FINDINGS: A single view of the chest demonstrates bibasilar densities. Cardiomegaly and previous CABG. The car diomediastinal contours are unremarkable. Osseous structures are intact. CONCLUSION: 1. Cardiomegaly and bibasilar atelectasis/scarring. 2. CABG. Fran Robert MD on February 21, 2018 at 14:19 Board Certified Radiologist. This report was verified electronically.
[2018-02-21] MEDS ORDERED: NITROGLYCERIN 0.4 MG SL 25 TABS/BTL SL PRN (14:45)
[2018-02-21] MEDS ORDERED: ACETAMINOPHEN 500 MG CPLT PO PRN (14:45)
[2018-02-21] MEDS ORDERED: SODIUM CHLORIDE 0.9% FLUSH 10 ML FLUSH IV FLUSH PRN (14:45)
[2018-02-21] MEDS ORDERED: ALPRAZolam 0.25 MG TAB PO PRN (14:45)
--- NOTE | 2018-02-21 14:57 | HHI.HP ---
[facility] Edna Cheng Do, MD Admission Diagnosis Atypical chest pain with elevated troponin Diagnoses: Chief Complaint: Left shoulder pain Travel History International Travel<30 Days: No Contact w/Intl Traveler <30 Da: No Traveled to Known Affected Are: No History of Present Illness This patient is a 77-year-old gentleman with a history of coronary artery disease who has been relatively stable medically reed but does admit 3 days of left shoulder pain intermittently without aggravating or relieving factors. He seems to resolve spontaneously and occurs without exertion. He is not short of breath, no dizziness or palpitations. He is coming for further evaluation of this and has had a mildly elevated troponin 0 0.07. Patient's EKG is also slightly abnormal on my review with some inverted T waves which appears about the same from previous EKG and Britta. There is some bradycardia which is asymptomatic. Patient is recommended for further evaluation and treatment for possible anginal equivalent with abnormal cardiac enzymes. Review of Systems Constitutional: DENIES: Diaphoretic episodes, Fatigue, Fever, Weight gain, Weight loss, Chills, Dizziness, Change in appetite, Night Sweats Endocrine: DENIES: Heat/cold intolerance, Polydipsia, Polyuria, Polyphagia Eyes: DENIES: Blurred vision, Diplopia, Eye inflammation, Eye pain, Vision loss , Photosensitivity, Double Vision Ears, nose, mouth, throat: DENIES: Tinnitus, Hearing loss, Vertigo, Nasal discharge, Oral lesions, Throat pain, Hoarseness, Ear Pain, Running Nose, Epistaxis, Sinus Pain, Toothache, Odynophagia Respiratory: DENIES: Apneas, Cough, Snoring, Wheezing, Hemoptysis, Sputum production, Shortness of breath Cardiovascular: DENIES: Chest pain, Palpitations, Syncope, Dyspnea on Exertion , PND, Lower Extremity Edema, Orthopnea, Claudication Gastrointestinal: DENIES: Abdominal pain, Black stools, Bloody stools, Constipation, Diarrhea, Nausea, Vomiting, Difficulty Swallowing, Anorexia Genitourinary: DENIES: Sexual dysfunction, Urinary frequency, Urinary incontinence, Urgency, Hematuria, Dysuria, Nocturia, Penile Discharge, Testicular Pain, Testicular Swelling Musculoskeletal: COMPLAINS OF: Joint pain, DENIES: Muscle aches, Stiffness, Joint Swelling, Back pain, Neck pain Integumentary: DENIES: Abnormal pigmentation, Nail changes, Pruritus, Rash Hematologic/lymphatic: DENIES: Bruising, Lymphadenopathy Immunologic/allergic: DENIES: Eczema, Urticaria Neurologic: DENIES: Abnormal gait, Headache, Localized weakness, Paresthesias, Seizures, Speech Problems, Tremor, Poor Balance Psychiatric: DENIES: Anxiety, Confusion, Mood changes, Depression, Hallucinations, Agitation, Suicidal Ideation, Homicidal Ideation, Delusions Except as stated in HPI: all other systems reviewed are Neg Past Family Social History Past Medical History cad Anxiety Psoriasis Past Surgical History Cardiac bypass 1995 Reported Medications Reviewed in EMR Allergies: Coded Allergies: No Known Allergies (Verified Adverse Reaction, Unknown, 02/21/18) Uncoded Allergies: NKA (Allergy, Unknown, 07/17/03) Active Ordered Medications Reviewed in the EMR Family History No family history of coronary disease, mother 88, father in a motor vehicle accident Social History Recently within the last month, no tobacco or alcohol dependency Physical Exam Vital Signs Vital Signs Date Time Temp Pulse Resp B/P (MAP) Pulse Ox O2 Delivery O2 Flow Rate FiO2 02/21/18 13:32 56 16 101/67 (78) 95 Room Air 02/21/18 11:36 97.5 62 16 120/66 (84) 97 Physical Exam GENERAL: This is a well-nourished, well-developed patient, in no apparent distress. SKIN: No rashes, ecchymoses or lesions. Cool and dry. HEAD: Atraumatic. Normocephalic. No temporal or scalp tenderness. EYES: Pupils equal round and reactive. Extraocular motions intact. No scleral icterus. No injection or drainage. ENT: Nose without bleeding, purulent drainage or septal hematoma. Throat without erythema, tonsillar hypertrophy or exudate. Uvula midline. Airway patent. NECK: Trachea midline. No JVD or lymphadenopathy. Supple, nontender, no meningeal signs. CARDIOVASCULAR: Regular rate and rhythm without murmurs, gallops, or rubs. RESPIRATORY: Clear to auscultation. Breath sounds equal bilaterally. No wheezes , rales, or rhonchi. GASTROINTESTINAL: Abdomen soft, non-tender, nondistended. No hepato-splenomegaly , or palpable masses. No guarding. MUSCULOSKELETAL: Extremities without clubbing, cyanosis, or edema. No joint tenderness, effusion, or edema noted. No calf tenderness. Negative Homans sign bilaterally. NEUROLOGICAL: Awake and alert. Cranial nerves II through XII intact. Motor and sensory grossly within normal limits. Five out of 5 muscle strength in all muscle groups. Normal speech. Laboratory Laboratory Tests Test 02/21/18 12:20 White Blood Count 7.1 Red Blood Count 5.12 Hemoglobin 15.1 Hematocrit 45.7 Mean Corpuscular Volume 89.3 Mean Corpuscular Hemoglobin 29.6 Mean Corpuscular Hemoglobin Concent 33.2 Red Cell Distribution Width 12.8 Platelet Count 216 Mean Platelet Volume 7.8 Neutrophils (%) (Auto) 66.8 Lymphocytes (%) (Auto) 23.3 Monocytes (%) (Auto) 6.6 Eosinophils (%) (Auto) 2.3 Basophils (%) (Auto) 1.0 Neutrophils # (Auto) 4.7 Lymphocytes # (Auto) 1.6 Monocytes # (Auto) 0.5 Eosinophils # (Auto) 0.2 Basophils # (Auto) 0.1 CBC Comment DIFF FINAL Differential Comment Prothrombin Time 11.5 Prothromb Time International Ratio 1.1 Activated Partial Thromboplast Time 25.2 Blood Urea Nitrogen 12 Creatinine 0.96 Random Glucose 141 Calcium Level 8.8 Sodium Level 137 Potassium Level 4.3 Chloride Level 106 Carbon Dioxide Level 22.5 Anion Gap 9 Estimat Glomerular Filtration Rate 76 Troponin I 0.07 Result Diagram: 02/21/18 1220 02/21/18 1220 Imaging Last Impressions Shoulder X-Ray 02/21/18 0000 Signed Impressions: Service Date/Time: Wednesday, February 21, 2018 11:55 - CONCLUSION: Negative for acute process. George Kaur MD FACR Chest X-Ray 02/21/18 0000 Signed Impressions: Service Date/Time: Wednesday, February 21, 2018 14:12 - CONCLUSION: 1. Cardiomegaly and bibasilar atelectasis/scarring. 2. CABG. Fran Robert MD Septic Shock Reassessment Septic shock perfusion: reassessment completed Caprini VTE Risk Assessment Caprini VTE Risk Assessment: Mod/High Risk (score >= 2) Caprini Risk Assessment Model Point Value = 1 Point Value = 2 Point Value = 3 Point Value = 5 Age 41-60 Minor surgery BMI > 25 kg/m2 Swollen legs Varicose veins or History of unexplained or recurrent spontaneous Oral contraceptives or hormone replacement Sepsis (< 1 month) Serious lung disease, including pneumonia (< 1 month) Abnormal pulmonary function Acute myocardial infarction Congestive heart failure (< 1 month) History of inflammatory bowel disease Medical patient at bed rest Age 61-74 Arthroscopic surgery Major open surgery (> 45 min) Laparoscopic surgery (> 45 min) Malignancy Confined to bed (> 72 hours) Immobilizing plaster cast Central venous access Age >= 75 History of VTE Family history of VTE Factor V Leiden Prothrombin [id number] Lupus anticoagulant Anticardiolipin antibodies Elevated serum homocysteine Heparin-induced thrombocytopenia Other congenital or acquired thrombophilia Stroke (< 1 month) Elective arthroplasty Hip, pelvis, or leg fracture Acute spinal cord injury (< 1 month) Prophylaxis Regimen Total Risk Factor Score Risk Level Prophylaxis Regimen 0-1 Low Early ambulation 2 Moderate Order ONE of the following: *Sequential Compression Device (SCD) *Heparin 5000 units SQ BID 3-4 Higher Order ONE of the following medications: *Heparin 5000 units SQ TID *Enoxaparin/Lovenox 40 mg SQ daily (WT < 150 kg, CrCl > 30 mL/min) *Enoxaparin/Lovenox 30 mg SQ daily (WT < 150 kg, CrCl > 10-29 mL/min) *Enoxaparin/Lovenox 30 mg SQ BID (WT < 150 kg, CrCl > 30 mL/min) AND/OR *Sequential Compression Device (SCD) 5 or more Highest Order ONE of the following medications: *Heparin 5000 units SQ TID (Preferred with Epidurals) *Enoxaparin/Lovenox 40 mg SQ daily (WT < 150 kg, CrCl > 30 mL/min) *Enoxaparin/Lovenox 30 mg SQ daily (WT < 150 kg, CrCl > 10-29 mL/min) *Enoxaparin/Lovenox 30 mg SQ BID (WT < 150 kg, CrCl > 30 mL/min) AND *Sequential Compression Device (SCD) Assessment and Plan Problem List: (1) Elevated troponin ICD Code: R74.8 - Abnormal levels of other serum enzymes Status: Acute Plan: Continue with telemetry, follow repeat cardiac enzymes Nuclear stress test in a.m. (2) Hypertension ICD Code: I10 - Essential (primary) hypertension Status: Chronic Plan: Currently controlled on medications (3) Left shoulder pain ICD Code: M25.512 - Pain in left shoulder Status: Acute Discussed Condition With Plan of care discussed with patient, ER MD Problem Qualifiers (1) Left shoulder pain: Qualified Codes: M25.512 - Pain in left shoulder Nirmala Mcnally MD Feb 21, 2018 14:57
[2018-02-21] MEDS: ENOXAPARIN SODIUM 40 MG/0.4 ML SYRINGE SQ SCH (15:00)
[2018-02-21] MEDS ORDERED: MORPHINE SULFATE 2 MG/ML SYRINGE IV PUSH PRN (15:00)
[2018-02-21] MEDS ORDERED: PILL SPLITTER OTHER PRN (15:15)
[2018-02-21] MEDS: ALPRAZolam 0.5 MG TAB PO SCH (15:44)
--- NOTE | 2018-02-21 17:11 | EKG ---
Date Performed: 02/21/2018 Time Performed: 11:53:30 PTAGE: 77 years EKG: SINUS BRADYCARDIA LEFT VENTRICULAR HYPERTROPHY AND ST-T CHANGE POSSIBLE INFERIOR MYOCARDIAL INFARCTION Since the previous tracing, no significant change noted ABNORMAL ECG PREVIOUS TRACING : 12/08/2016 08.02 DOCTOR: Shahzad Stanton Interpretating Date/Time 02/21/2018 17:09:41
[2018-02-21] MEDS: ALUMINUM/MAGNESIUM/SIMETH 30 ML CUP PO SCH ×3 (18:00→21:00)
[2018-02-21] MEDS: ATORVASTATIN 40 MG TAB PO SCH ×2 (20:52→20:56)
[2018-02-21] MEDS: METOPROLOL TARTRATE 25 MG TAB PO SCH ×2 (20:52→21:02)
[2018-02-21] MEDS: SODIUM CHLORIDE 0.9% FLUSH 10 ML FLUSH IV FLUSH SCH (20:52)
[2018-02-22] VITALS: BP 136/78; PULSE 64; RESP 22; TEMP 96.9; O2SAT 96
[2018-02-22 04:00] VITALS: BP 127/74; PULSE 61; RESP 22; TEMP 97.1; O2SAT 96
[2018-02-22] MEDS ORDERED: ISOSORBIDE MONONITRATE 30 MG CR TAB (IMDUR) PO SCH (07:00)
[2018-02-22 08:00] VITALS: BP 108/76; PULSE 67; RESP 14; TEMP 97.2; O2SAT 94
[2018-02-22] MEDS: ALUMINUM/MAGNESIUM/SIMETH 30 ML CUP PO SCH ×2 (08:23→12:29)
[2018-02-22] MEDS: SODIUM CHLORIDE 0.9% FLUSH 10 ML FLUSH IV FLUSH SCH (08:23)
[2018-02-22] MEDS: ALPRAZolam 0.5 MG TAB PO SCH (08:25)
[2018-02-22] MEDS ORDERED: LISINOPRIL 5 MG TAB PO SCH (09:00)
[2018-02-22] MEDS: METOPROLOL TARTRATE 25 MG TAB PO SCH (09:00)
[2018-02-22] MEDS ORDERED: PANTOPRAZOLE SOD 40 MG DELAYED RELEASE TAB PO SCH (09:00)
[2018-02-22] MEDS ORDERED: CLOPIDOGREL 75 MG TAB PO SCH (09:00)
[2018-02-22 09:45] VITALS: PULSE 70
--- NOTE | 2018-02-22 10:50 | HHI.PR ---
Subjective Remarks Patient is seen and evaluated today in follow-up for atypical chest pain with abnormal troponins and baseline abnormal EKG. Stress test pending. Patient reports no further shoulder pain. Cardiac enzymes have remained stable Objective Vitals Vital Signs Date Time Temp Pulse Resp B/P (MAP) Pulse Ox O2 Delivery O2 Flow Rate FiO2 02/22/18 09:45 70 02/22/18 08:00 97.2 67 14 108/76 (87) 94 02/22/18 04:00 97.1 61 22 127/74 (91) 96 02/22/18 00:00 96.9 64 22 136/78 (97) 96 02/21/18 20:00 59 02/21/18 20:00 97.8 62 20 131/79 (96) 94 02/21/18 19:30 96 21 02/21/18 18:48 96 02/21/18 16:02 63 02/21/18 15:30 96.1 60 17 129/78 (95) 96 02/21/18 15:19 02/21/18 13:32 56 16 101/67 (78) 95 Room Air 02/21/18 11:36 97.5 62 16 120/66 (84) 97 I/O 02/21/18 02/21/18 02/21/18 02/22/18 02/22/18 02/22/18 07:00 15:00 23:00 07:00 15:00 23:00 Intake Total 420 ml Output Total 350 ml Balance 70 ml Intake Oral 420 ml Output Urine Total 350 ml # Bowel Movements 1 Result Diagram: 02/21/18 1220 02/21/18 1220 Imaging Last Impressions Shoulder X-Ray 02/21/18 0000 Signed Impressions: Service Date/Time: Wednesday, February 21, 2018 11:55 - CONCLUSION: Negative for acute process. George Kaur MD FACR Chest X-Ray 02/21/18 0000 Signed Impressions: Service Date/Time: Wednesday, February 21, 2018 14:12 - CONCLUSION: 1. Cardiomegaly and bibasilar atelectasis/scarring. 2. CABG. Fran Robert MD Objective Remarks GENERAL: This is a well-nourished, well-developed patient, in no apparent distress. CARDIOVASCULAR: Regular rate and rhythm without murmurs, gallops, or rubs. RESPIRATORY: Clear to auscultation. Breath sounds equal bilaterally. No wheezes , rales, or rhonchi. GASTROINTESTINAL: Abdomen soft, non-tender, nondistended. Normal active bowel sounds MUSCULOSKELETAL: Extremities without clubbing, cyanosis, or edema. NEURO: Alert & Oriented x4 to person, place, time, situation. Moves all ext x4 A/P Problem List: (1) Elevated troponin ICD Code: R74.8 - Abnormal levels of other serum enzymes Status: Acute Plan: Cardiac enzymes negative Follow-up stress test and if no evidence of reversible ischemia will discharge home (2) Hypertension ICD Code: I10 - Essential (primary) hypertension Status: Chronic Plan: Currently controlled on medications (3) Left shoulder pain ICD Code: M25.512 - Pain in left shoulder Status: Acute Plan: Resolved Discharge Planning [facility] home activity ad ingrid Diet heart healthy Problem Qualifiers (1) Left shoulder pain: Qualified Codes: M25.512 - Pain in left shoulder Nirmala Mcnally MD Feb 22, 2018 10:50
[2018-02-22 12:29] VITALS: BP 124/73; PULSE 63; RESP 16; TEMP 96.8; O2SAT 96
[2018-02-22] MEDS ORDERED: REGADENOSON INJ 0.4 MG/5 ML SYR IV ONE (14:19)
[2018-02-22] MEDS: ENOXAPARIN SODIUM 40 MG/0.4 ML SYRINGE SQ SCH (15:00)
--- NOTE | 2018-02-22 15:41 | EKG ---
Date Performed: 02/21/2018 Time Performed: 16:27:18 PTAGE: 77 years EKG: SINUS BRADYCARDIA LEFT VENTRICULAR HYPERTROPHY AND ST-T CHANGE Consider INFERIOR MYOCARDIAL INFARCTION - age indeterminate ABNORMAL ECG PREVIOUS TRACING : 02/21/2018 11.53 DOCTOR: Victor Manuel Lopez Interpretating Date/Time 02/22/2018 15:38:33
--- NOTE | 2018-02-22 15:41 | EKG ---
Date Performed: 02/21/2018 Time Performed: 19:37:03 PTAGE: 77 years EKG: SINUS BRADYCARDIA ST DEVIATION AND MODERATE T-WAVE ABNORMALITY, CONSIDER ANTEROLATERAL ISCH EMIA ST DEVIATION AND MODERATE T-WAVE ABNORMALITY, CONSIDER INFERIOR ISCHEMIA ABNORMAL ECG PREVIOUS TRACING : 02/21/2018 16.27 DOCTOR: Victor Manuel Lopez Interpretating Date/Time 02/22/2018 15:38:47
--- NOTE | 2018-02-22 15:57 | RADRPT ---
EXAM DATE/TIME: 02/22/2018 14:05 [facility] COMPARISON: No previous studies available for comparison. INDICATIONS : Left sided pain radiating to shoulder. Abnormal EKG. Coronary artery disease. DOSE: 25.4 mCi Tc99m Myoview at stress. 8.5 mCi Tc99m Myoview at rest. 0.4 mg Lexiscan STRESS SYMPTOMS: Asymptomatic. EJECTION FRACTION: 52% MEDICAL HISTORY : Hypertension. SURGICAL HISTORY : CABG ENCOUNTER: Initial ACUITY: 1 day PAIN SCALE: 4/10 LOCATION: Left chest TECHNIQUE: The patient underwent pharmacologic stress with infusion of prescribed dose. Continuous ECG tracing was monitored during stress. Gated SPECT imaging was performed after stress and conventional SPECT i maging was performed at rest. The examination was performed on a SPECT/CT scanner, both attenuation and non-corrected datasets were reviewed. FINDINGS: DISTRIBUTION: The maximum perfused segment at stress is in the contralateral wall. PERFUSION STUDY: The pattern of perfusion at stress is within normal limits. There are no fixed or reversible perfusio n abnormalities. GATED STUDY: There is intact wall motion and thickening without hypokinetic segments. The distal inferior wall is dyskinetic. Wall motion is otherwise observed. Ejection fraction remains within normal limits. CONCLUSION: 1. No evidence of significant fixed or reversible perfusion abnormality. 2. Focal dyskinetic wall motion in the distal inferior wall 3. Ejection fraction remains within normal limits. RISK CATEGORY: Low (<1% Annual Mortality Rate) Sarath Patton MD on February 22, 2018 at 15:51 Board Certified Radiologist. This report was verified electronically.
[2018-02-22 16:00] VITALS: BP 126/90; PULSE 71; RESP 14; TEMP 96.3; O2SAT 94
--- NOTE | 2018-02-22 16:05 | HHI.DCPOC ---
Discharge Care Plan Diagnosis: (1) Chest pain Goals to Promote Your Health * To prevent worsening of your condition and complications * To maintain your health at the optimal level Directions to Meet Your Goals Take your medications as prescribed Follow your dietary instruction Follow activity as directed Keep your appointments as scheduled Take your immunizations and boosters as scheduled If your symptoms worsen call your PCP, if no PCP go to Urgent Care Center or Emergency Room Smoking is Dangerous to Your Health. Avoid second hand smoke Call the 24-hour hour crisis hotline for domestic abuse at Nirmala Mcnally MD Feb 22, 2018 16:05
== END 2018-02-22 17:50 | disposition home or self-care (01) ==
LOC: PHEFT 11:31 → PHEDA 14:26 → PH3A 15:28
PROVIDERS: ADMIT Hospitalist; ATTEND Hospitalist
DX: R74.8 Abnormal levels of other serum enzymes (principal); R07.89 Other chest pain; M25.512 Pain in left shoulder; I25.10 Atherosclerotic heart disease of native coronary artery without angina pectoris; I11.9 Hypertensive heart disease without heart failure; I25.2 Old myocardial infarction; R00.1 Bradycardia, unspecified; L40.9 Psoriasis, unspecified; F41.9 Anxiety disorder, unspecified; F32.9 Major depressive disorder, single episode, unspecified; Z95.1 Presence of aortocoronary bypass graft; Z79.899 Other long term (current) drug therapy; Z79.82 Long term (current) use of aspirin
CPT/HCPCS: 71045; 73030; 78452; 80048; 84484; 85025; 85610; 85730; 93005; 93017; 99285; A9502; G0378; J2785; J1650

== ENCOUNTER 2018-09-09 01:25 | Inpatient (IN) ==
[2018-09-09 01:34] VITALS: TEMP 98.2
[2018-09-09] MEDS ORDERED: Morphine Inj 4 MG/ML Vial IV.PUSH ONE (01:40)
[2018-09-09] MEDS ORDERED: Ketorolac Inj 30 MG/ML (IVP) Vial IV.PUSH ONE (01:41)
--- NOTE | 2018-09-09 01:48 | ED ---
HPI General Chief Complaint: Chest Pain Stated Complaint: Chest pain Time Seen by Provider: 09/09/18 01:34 Source: patient Mode of arrival: ambulatory Limitations: no limitations History of Present Illness MD complaint: Reports chest pain STEMI Alert: No Onset (ago): hour(s) (2) Duration: constant Onset: during rest Pain location: Reports left chest Severity: severe Severity scale (1-10): 7 Quality: Reports tightness and heaviness Pain radiation: Reports none Relieving factors: nothing (has taken viagra tonight; has nitroglycerin and did not take any) Exacerbating factors: exertion Context: Denies recent illness, recent surgery, recent immobilization, recent travel, trauma/injury, new medications and history of DVT/PE Associated symptoms: Denies nausea, vomiting, diaphoresis, dyspnea, sense of impending doom, syncope, palpitations, fever, cough and leg swelling Treatments prior to arrival chest pain: Reports none Related Data Home Medications Medication Instructions Recorded Confirmed alprazolam 0.5 mg PO BID 09/09/18 09/09/18 amlodipine 10 mg PO 09/09/18 aspirin [Aspir-81] 81 mg PO 09/09/18 metoprolol tartrate 12.5 mg PO BID 09/09/18 09/09/18 pravastatin 40 mg PO DAILY 09/09/18 09/09/18 sildenafil [Viagra] 100 mg PO DAILY PRN 09/09/18 09/09/18 Allergies Allergy/AdvReac Type Severity Reaction Status Date / Time No Known Allergies Allergy Verified 09/09/18 01:36 Review of Systems ROS: all other systems reviewed are negative PMFSH History History Provided By: Patient (Hypertension CAD CABG CABG no tobacco use no diabetes) Social History Social History Recent Travel in [facility] within the Last 8 Weeks: No Recent Out of Country Travel within the Last 8 Weeks: No Exam Narrative Exam Narrative: GENERAL: Well-nourished, well-developed patient. SKIN: Focused skin assessment warm/dry. HEAD: Normocephalic. EYES: No scleral icterus. No injection or drainage. NECK: Supple, trachea midline. No JVD or lymphadenopathy. CARDIOVASCULAR: Regular rate and rhythm without murmurs, gallops, or rubs. Radial and dorsalis pedis pulses 2+ to palpation bilaterally. RESPIRATORY: Breath sounds equal bilaterally. No accessory muscle use. GASTROINTESTINAL: Abdomen soft, non-tender, nondistended. MUSCULOSKELETAL: No cyanosis, or edema. BACK: Nontender without obvious deformity. No CVA tenderness. Course Initial Documented Vital Signs Temperature 98.2 F 09/09/18 01:25 Pulse Rate 79 09/09/18 01:25 Respiratory Rate 16 09/09/18 01:25 Blood Pressure 131/76 09/09/18 01:25 Pulse Oximetry 98 09/09/18 01:25 Last Documented Vital Signs Temperature 98.2 F 09/09/18 01:25 Pulse Rate 79 09/09/18 01:25 Respiratory Rate 16 09/09/18 01:25 Blood Pressure 131/76 09/09/18 01:25 Pulse Oximetry 98 09/09/18 01:25 Medical Decision Making MDM Narrative Medical decision making narrative: 78-year-old male with chest discomfort 7/10 in intensity times 2 hours nonradiating with no associated symptoms presents for evaluation known history of CABG and stent placement hypertension history. Patient has had Viagra this evening prior to coming to the emergency room therefore will administer aspirin will give 2 mg of morphine sulfate for complaint of pain with Zofran but unable to administer nitroglycerin. EKG will be performed along with collection of basic specimen for lab results and chest x -ray. Anticipate patient will require at least observation admission. Medical Screen Exam Complete: Yes Emergency Medical Condition: Yes Differential Diagnosis Differential Diagnosis: Chest pain atypical chest pain ACS WI PE CHF Medical Records Medical records reviewed: Yes I reviewed the patient's medical records. ECG Data EKG Prior to Arrival: No Prior ECG tracings: not available for review Interpretation: EKG normal sinus rhythm rate 70 per LVH changes by voltage criterion inverted T waves anterolaterally no ST segment depression QS inferiorly age-indeterminate no ST elevation. Discharge Plan Discharge Disposition Patient Disposition: 30 Still Patient Discharge Condition Condition: Stable Discharge Details Diagnosis: Chest pain Physicians Team ED Provider: Norma Houston Rxs /Orders / Referrals /Forms Prescriptions: No Action sildenafil [Viagra] 100 mg Tablet 100 mg PO DAILY PRN (Reason: Erectile Dysfunction) RF: 0 pravastatin 40 mg Tablet 40 mg PO DAILY RF: 0 aspirin [Aspir-81] 81 mg Tablet,Delayed Release (Dr/Ec) 81 mg PO RF: 0 alprazolam 0.5 mg Tablet 0.5 mg PO BID RF: 0 amlodipine 10 mg Tablet 10 mg PO RF: 0 metoprolol tartrate 25 mg Tablet 12.5 mg PO BID RF: 0 Discharge Instructions Patient Printed Instructions: Chest Pain (ED) Status ED Status: With Doctor
[2018-09-09] MEDS ORDERED: Sodium Chlor 0.9% Inj 500 ML IV.SIG SCH (02:00)
[2018-09-09 02:15] LABS: Chloride 107 meq/L (98-107); Potassium 3.8 meq/L (3.5-5.1); Sodium 139 meq/L (136-145)
[2018-09-09 02:18] LABS: Albumin 3.6 g/dL (3.4-5.0); Anion Gap 10 meq/L (5-15); Calcium 8.3 mg/dL (8.5-10.1); Carbon Dioxide 22.2 meq/L (21.0-32.0); Glucose,Random 125 mg/dL (74-106); Magnesium 2.2 mg/dL (1.5-2.5)
[2018-09-09 02:19] LABS: Blood Urea Nitrogen 12 mg/dL (7-18)
[2018-09-09 02:21] LABS: Alanine Aminotransferase 32 U/L (12-78)
[2018-09-09 02:22] LABS: Aspartate Aminotransferase 25 U/L (15-37); Glomerular Filtration Rate 65 mL/min (>89)
[2018-09-09 02:23] LABS: Total Protein 7.3 g/dL (6.4-8.2)
[2018-09-09 02:24] LABS: Alkaline Phosphatase 85 U/L (45-117)
[2018-09-09 02:27] LABS: Baso # (Auto) 0.1 th/mm3 (0.0-0.2); Baso % (Auto) 0.7 % (0.0-2.0); Eos # (Auto) 0.2 th/mm3 (0.0-0.4); Eos % (Auto) 1.9 % (0.0-4.0); Hematocrit 46.9 % (39.0-51.0); Hemoglobin 16.2 gm/dL (13.0-17.0); Lymph % (Auto) 18.6 % (9.0-44.0); Mean Corpuscular HGB Conc 34.6 % (32.0-36.0); Mean Corpuscular Hemoglobin 31.3 pg (27.0-34.0); Mean Corpuscular Volume 90.6 fL (80.0-100.0); Mean Platelet Volume 8.7 fL (7.0-11.0); Mono # (Auto) 0.9 th/mm3 (0.0-0.9); Mono % (Auto) 8.4 % (0.0-8.0); Neut # (Auto) 7.4 th/mm3 (1.8-7.7); Neut % (Auto) 70.4 % (16.0-70.0); Platelet Count 230 th/mm3 (150-450); Red Blood Count 5.18 mil/mm3 (4.50-5.90); Troponin I 0.06 ng/mL (0.02-0.05); White Blood Count 10.6 th/mm3 (4.0-11.0)
--- NOTE | 2018-09-09 02:27 | XR ---
EXAM DATE: 09/09/2018 1:52 AM EDT AGE/SEX: 78 years / Male INDICATIONS: Chest pressure for a few hours last night. CLINICAL DATA: This is the patient's initial encounter. Patient reports that signs and symptoms have been present for 1 day and indicates a pain score of 0/10. MEDICAL/SURGICAL HISTORY: . Coronary Artery disease. Hypertension CABG. COMPARISON: No prior exams available for comparison. FINDINGS: The cardiac silhouette is enlarged in transverse diameter. Median sternotomy wires are present. The l ungs are free of acute parenchymal opacity. No pulmonary nodules or pleural effusions are identified. The background interstitium is prominent though this is likely chronic in nature. CONCLUSION: Cardiomegaly. No acute pulmonary disease. Electronically signed by: Shahzad Mcclure MD 09/09/2018 2:26 AM EDT
[2018-09-09] MEDS ORDERED: Acetaminophen 325 MG Tablet PO PRN (02:48)
[2018-09-09] MEDS ORDERED: Bisacodyl 10 MG Supp RECTAL PRN (02:48)
[2018-09-09] MEDS ORDERED: Morphine Inj 4 MG/ML Vial IV.PUSH PRN (02:49)
[2018-09-09] MEDS ORDERED: Sod Chloride 0.9% Inj 1,000 ML IV.CONT SCH (03:00)
[2018-09-09] MEDS ORDERED: Heparin 10,000 UNITS/10 ML Vial (for IV use) IV.PUSH STA (03:02)
[2018-09-09] MEDS ORDERED: Heparin Drip 25,000 UNIT/250 ML BAG IV.CONT PRN (03:02)
[2018-09-09 04:13] LABS: Activated Partial Thrombo Time 27.7 sec (23.4-31.7); INR 1.1 Ratio; Prothrombin Time 11.1 sec (9.8-11.6)
[2018-09-09 05:48] VITALS: BP 118/75; PULSE 77; RESP 20; O2SAT 100
[2018-09-09] MEDS ORDERED: ALPRAZolam 0.5 MG Tablet PO SCH (09:00)
[2018-09-09] MEDS ORDERED: Senna/Docusate Sodium 8.6/50 MG Tablet PO SCH (09:00)
[2018-09-09] MEDS ORDERED: Metoprolol Tartrate 25 MG Tablet PO SCH (09:00)
--- NOTE | 2018-09-09 20:30 | ECG ---
Date Performed: 09/09/2018 Time Performed: 01:33:36 PTAGE: 78 years EKG: Sinus rhythm LEFT VENTRICULAR HYPERTROPHY AND ST-T CHANGE POSSIBLE INFERIOR MYOCARDIAL INFARCTION ABNORMAL ECG PREVIOUS TRACING : 02/21/2018 19.37 Compared to previous tracing, left ventricular strain patte rn less prominent DOCTOR: John Guerra Interpretating Date/Time 09/09/2018 20:28:29
== END 2018-09-09 05:49 | disposition left against medical advice (07) ==
LOC: PHED 01:25 → PHEDA 03:00
PROVIDERS: ADMIT Internal Medicine; ATTEND Internal Medicine